=== PATIENT | female | born 1970 | race Caucasian/White ===

== ENCOUNTER 2024-04-30 09:00 | Outpatient (RCR) | payer OTHER, SELFPAY ==
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
--- NOTE | 2024-07-02 12:15 | HP.PT.NRP ---
Patient Information Patient Information: SOLIS LEWIS was seen in my office for initial evaluation on 04/19/24. The following Plan of Care was established for this patient: POC Established Initial Frequency: 1x/Week Initial Duration: 2-4 Months Anticipated Interventions Patient/Client Instruction: Educate patient on: Condition, Plan of Care and Risk Factors For the Purpose of:: To improve self management Therapeutic Exercise to Include: Strength training, Endurance training, Body mechanics, Postural training, Flexibilty training, Neuromotor development and Relaxation training For the Purpose of:: To improve muscle performance and motor function and To increase flexibility/ROM Last Seen Last Seen: This patient was last seen in our office 04/30/24. Pertinent comments regarding their Physical therapy will appear below: It has been my pleasure to see this patient for a total of 2 visits. This patient has not returned to Physical Therapy for more visits and is appropriate to return to MD for further follow-up as needed. At this point I will be discontinuing this patient from physical therapy. I would be happy to see this patient again in the future if found appropriate by the physician. Thank you! Letty Carballo, PT, Cert MDT
== END 2024-04-30 19:00 | disposition home or self-care (01) ==
LOC: PT 09:00
PROVIDERS: Referring Provider Urology; Visit Provider Urology
DX: N94.9 Unspecified condition associated with female genital organs and menstrual cycle (principal); N39.3 Stress incontinence (female) (male)
CPT/HCPCS: 97162; 97530